=== PATIENT | male | born 1990 | race Caucasian/White ===

== ENCOUNTER 2019-10-20 16:12 | Emergency (ER) | payer SELFPAY ==
[2019-10-20 16:25] VITALS: BP 137/93; PULSE 80; TEMP 98.4; BMI 25.7
--- NOTE | 2019-10-20 16:43 | PDOC ---
Documentation entered by Melanie Jones SCRIBE, acting as scribe for Gabby Jaimes DO. Gabby Jaimes DO: This documentation has been prepared by the scribe, Melanie Jones SCRIBE, under my direction and personally reviewed by me in its entirety. I confirm that the documentation accurately reflects all work, treatment, procedures, and medical decision making performed by me. History of Present Illness - General Chief Complaint: Injury Stated Complaint: RIGHT SHOULDER INJURY History Source: Patient Exam Limitations: No Limitations - History of Present Illness Initial Comments: 10/20/19 16:37 The patient is a 29-year-old male with no reported past medical history who presents to the emergency department with a right shoulder injury. The patient reports he was playing cricket around 10:30 am today in the rain, he went to catch the ball and landed on his right shoulder and injuring it. The patient reports pain with movement of the arm, denies any numbness or tingling. The patient reports a prior injury to the right shoulder from lifting weights. Denies neck pain. Denies abdominal pain. Denies surgical history. Past History - Medical History Allergies/Adverse Reactions: Allergies Allergy/AdvReac Type Severity Reaction Status Date / Time No Known Allergies Allergy Verified 10/20/19 16:13 Home Medications: Ambulatory Orders Multivitamins [Tab-A-Vit -] 1 tab PO DAILY 10/20/19 Review of Systems - Review of Systems Able to Perform ROS?: Yes Comments:: 10/20/19 16:37 GENERAL/CONSTITUTIONAL: No fever or chills. No weakness. HEAD, EYES, EARS, NOSE AND THROAT: No change in vision. No ear pain or discharge. No sore throat. GASTROINTESTINAL: No nausea, vomiting, diarrhea or constipation. GENITOURINARY: No dysuria, frequency, or change in urination. CARDIOVASCULAR: No chest pain or shortness of breath. RESPIRATORY: No cough, wheezing, or hemoptysis. MUSCULOSKELETAL: +right shoulder injury. No other joint or muscle swelling or pain. No neck or back pain. SKIN: No rash NEUROLOGIC: No headache, vertigo, loss of consciousness, or change in strength/sensation. ENDOCRINE: No increased thirst. No abnormal weight change. HEMATOLOGIC/LYMPHATIC: No anemia, easy bleeding, or history of blood clots. ALLERGIC/IMMUNOLOGIC: No hives or skin allergy. *Physical Exam - Physical Exam 10/20/19 16:44 Constitutional: Awake, alert, oriented. No acute distress. Head: Normocephalic. Atraumatic Eyes: PERRL. EOMI. Conjunctivae are not pale. ENT: Mucous membranes are moist and intact. Posterior pharynx without exudate or erythema. Uvula midline. Neck: Supple. Full ROM. No lymphadenopathy. Cardiovascular: Regular rate. Regular rhythm. S1, S2 regular. Pulmonary/Chest: No evidence of respiratory distress. Clear to auscultation bilaterally No wheezing, rales, or rhonchi. Abdominal: Soft and non-distended. There is no tenderness. Back: No CVA tenderness. Musculoskeletal: Neurovascularly intact of the distal clavicle. Shoulder joint in place, no dislocation. Tenderness to the distal clavicle in the AC joint. Limited range of motion with passive and active movement, adduction and abduction, and flexion and extension. Tenderness to the spine of the scapula in the back. Sensation intact to the arm. Brisk cap refill. Rest of the extremities: No edema. No cyanosis. No clubbing. Full range of motion in all extremities. No calf tenderness. Radial/pedal pulses are intact and 2+ bilaterally Skin: Skin is warm and dry. No petechiae. No purpura. Neurological: Alert and oriented to person, place, and time. Cranial nerves II-XII are grossly intact. Normal speech. Strength is grossly symmetric. No sensory deficits. Psychiatric: Good eye contact. Normal interaction, affect and behavior. Medical Decision Making - Medical Decision Making 10/20/19 16:41 a/p: 29yo male with R clavicle and shoulder pain after diving and landing on his R shoulder while trying to catch a ball while playing cricket -pt with soft tissue swelling over the distal clavicle -pain across spine of scapula and the AC joint -concern for ac joint separation vs clavicle fx -xrays ordered -pt decline pain meds -ice applied to the shoulder -neurovasc intact distal -no head injury -no loc -no c/t/l spine ttp -pt ambulated into the ER with a steady gait 10/20/19 17:15 no acute fx seen on the xray concern for poss ac joint separation will place in a sling and recommend follow up with orthopedics pt stable for dc to home 10/20/19 17:24 discussed xray findings pt placed in a sling discussed rest and ice at home discussed need for follow up dc to home Discharge - Discharge Information Problems reviewed: Yes Clinical Impression/Diagnosis: Right shoulder pain, Separation of AC joint Condition: Stable Disposition: HOME - Admission No - Follow up/Referral Referrals: Hussein Mariscal MD [Staff Physician] - Jassi Moseley DO [Staff Physician] - Itz Rodriguez MD [Staff Physician] - Marvin Roa MD [Staff Physician] - - Patient Discharge Instructions Patient Printed Discharge Instructions: DI for Shoulder Pain, DI for AC Joint Separation Additional Instructions: Please wear the sling. Please apply ice 20 min on and 20 min off. Please take tylenol or motrin as needed for pain. Please make an appointment to follow up with the orthopedist this week. Please do not lift any thing heavy and please rest the right arm. Please also follow up with the primary care physician. Please return to the ER with any further concerns or complaints. - Post Discharge Activity
== END 2019-10-20 17:35 | disposition home or self-care (01) ==
LOC: FER 16:12
DX: M25.511 Pain in right shoulder (principal); S43.101A Unspecified dislocation of right acromioclavicular joint, initial encounter
CPT/HCPCS: 73000-TC-RT-FY; 73030-TC-RT-FY; 99284-25

== ENCOUNTER 2022-03-21 19:26 | Emergency (ER) | payer OTHER ==
[2022-03-21 19:47] VITALS: BP 118/66; PULSE 68; RESP 18; TEMP 98.5; BMI 27.1
[2022-03-21] MEDS ORDERED: ACETAMINOPHEN 325 MG TABLET (FP) ONE (20:29)
[2022-03-21] MEDS ORDERED: LIDOCAINE 5% TOPICAL PATCH ONE (20:30)
[2022-03-21] MEDS ORDERED: ACETAMINOPHEN 500 MG TABLET (FP) PO ONE (20:51)
[2022-03-21] MEDS ORDERED: LIDOCAINE 5% TOPICAL PATCH TP ONE (20:51)
[2022-03-21] MEDS ORDERED: LIDOCAINE PATCH REMOVAL MC SCH (22:00)
== END 2022-03-21 21:20 | disposition home or self-care (01) ==
LOC: FER 19:26
DX: S22.31XA Fracture of one rib, right side, initial encounter for closed fracture (principal); V00.321A Fall from snow-skis, initial encounter
CPT/HCPCS: 71046-TC-FY; 71101-TC-RT-FY; 71250-TC; 99284-25

== ENCOUNTER 2022-11-18 10:53 | Emergency (ER) | payer OTHER ==
[2022-11-18 11:03] VITALS: BP 135/88; PULSE 58; RESP 15; TEMP 99; BMI 25.9
[2022-11-18] MEDS ORDERED: ACETAMINOPHEN 325 MG TABLET (FP) PO ONE (11:08)
[2022-11-18] MEDS ORDERED: ACETAMINOPHEN 325 MG TABLET (FP) ONE (11:21)
[2022-11-18] MEDS ORDERED: CEPHALEXIN MONOHYDRATE 500 MG CAPSULE (UD) PO ONE (12:18)
[2022-11-18] MEDS ORDERED: CEPHALEXIN MONOHYDRATE 500 MG CAPSULE (UD) ONE (12:19)
== END 2022-11-18 12:23 | disposition home or self-care (01) ==
LOC: FER 10:53
PROC: 0HQFXZZ Repair Right Hand Skin, External Approach (ICD-10-PCS; principal; 2022-11-18)
DX: S61.210A Laceration without foreign body of right index finger without damage to nail, initial encounter (principal); W26.8XXA Contact with other sharp object(s), not elsewhere classified, initial encounter
CPT/HCPCS: 73140-TC-RT-FY; 99283-25